=== PATIENT | female | born 1990 | race Caucasian/White ===

== ENCOUNTER 2020-12-11 17:27 | Emergency (ER) | payer SELFPAY ==
[2020-12-11 18:29] VITALS: BP 119/74; PULSE 90
--- NOTE | 2020-12-11 18:50 | EDM.PDOC ---
<JurgenMaxineYsabel Arambula - Last Filed: 12/11/20 18:36> ED HPI GENERAL MEDICAL PROBLEM - General Chief Complaint: Fever Stated Complaint: TEMP 98.1 , PT STATES SHE HAS CALL COVID S Time Seen by Provider: 12/11/20 18:30 Source of Information: Reports: Patient History Limitations: Reports: No Limitations - History of Present Illness INITIAL COMMENTS - FREE TEXT/NARRATIVE: Patient is a 30 yo female who presents to the ED with a 2 day history of sinus congestion, headache, and fever. She states her symptoms began with sinus congestion two days and she later developed a headache. That night the patient reported a fever of 103 degrees Fahrenheit. She took NyQuil which improved her symptoms. Yesterday her symptoms persisted and she also developed a scratchy throat, cough and developed a fever of 101 degrees Fahrenheit. Yesterday she took DayQuil and NyQuil and states she also had improvement of symptoms. She reports no fever today, but has some mild nausea with no events of emesis. Her appetite is decreased, but reports good fluid intake. She denies fatigue, chills, vomiting, body aches, sore throat, cough with production, SOB, chest pain, abdominal pain, or changes in bowel habits. Her boyfriend tested positive for Covid today, developed symptoms 5 days ago, so she is concerned she may also have Covid. Aside from this she offers no other acute concerns. Duration: Day(s): (2 days ) Location: Reports: Other (headache, sinus congestion, fever) Improves with: Reports: Medication Worsens with: Reports: None Associated Symptoms: Reports: Fever/Chills, Headaches, Loss of Appetite, Nausea/Vomiting Treatments ONSHORE DIVER: Reports: Other (see below) (NyQuil, DayQuil ) - Related Data Allergies Allergy/AdvReac Type Severity Reaction Status Date / Time No Known Allergies Allergy Verified 12/11/20 18:24 Home Meds: Home Meds . [No Known Home Meds] 12/11/20 [History] Past Medical History - Past Health History Medical/Surgical History: Denies Medical/Surgical History Other Dermatologic History: eczema Social & Family History - Tobacco Use Tobacco Use Status *Q: Current Every Day Tobacco User Years of Tobacco use: 13 Packs/Tins Daily: 0.7 ED ROS GENERAL - Review of Systems Review Of Systems: Comprehensive ROS is negative, except as noted in HPI. ED EXAM, GENERAL - Physical Exam Exam: See Below Exam Limited By: No Limitations General Appearance: Alert, WD/WN, No Apparent Distress Eye Exam: Bilateral Eye: EOMI, Normal Inspection, PERRL Ears: Normal External Exam, Normal Canal, Hearing Grossly Normal, Normal TMs Nose: Normal Inspection, Normal Mucosa, No Blood, Other (No sinus congestion ). No: Nasal Drainage Throat/Mouth: Normal Inspection, Normal Lips, Normal Teeth, Normal Gums, Normal Oropharynx, Normal Voice, No Airway Compromise Head: Atraumatic, Normocephalic Neck: Normal Inspection, Supple, Non-Tender, Full Range of Motion Respiratory/Chest: No Respiratory Distress, Lungs Clear, Normal Breath Sounds, No Accessory Muscle Use, Chest Non-Tender Cardiovascular: Normal Peripheral Pulses, Regular Rate, Rhythm, No Edema, No Gallop, No JVD, No Murmur, No Rub GI/Abdominal: Normal Bowel Sounds, Soft, Non-Tender, No Organomegaly, No Distention, No Abnormal Bruit, No Mass (Female) Exam: Deferred Rectal (Female) Exam: Deferred Extremities: Normal Inspection, Normal Range of Motion, Non-Tender, Normal Capillary Refill, No Pedal Edema Neurological: Alert, Oriented, CN II-XII Intact, Normal Cognition, Normal Gait, Normal Reflexes, No Motor/Sensory Deficits Psychiatric: Normal Affect, Normal Mood Skin Exam: Warm, Dry, Intact, Normal Color, No Rash Lymphatic: No Adenopathy Course - Re-Assessments/Exams Free Text/Narrative Re-Assessment/Exam: -Patient's fever is well controlled with medication and afebrile in the clinic. No cough with production, lungs are clear bilaterally, and no sinus tenderness, so no CBC warranted. -The patient has had no events of emesis, no diarrhea or lose stools, and adequate hydration so concerns for dehydration or need for CMP. -Patient has no chest pain, SOB, and is an otherwise healthy 30 yo female so D-dimer is not warranted. 12/11/20 18:55 Departure - Departure Time of Disposition: 19:21 Disposition: Home, Self-Care 01 Condition: Good Clinical Impression: COVID-19 - Discharge Information *PRESCRIPTION DRUG MONITORING PROGRAM REVIEWED*: No *COPY OF PRESCRIPTION DRUG MONITORING REPORT IN PATIENT DIANNE: No Instructions: COVID-19: What Your Test Results Mean - CDC, 10 Things You Can Do to Manage Your COVID-19 Symptoms at Home - CDC Forms: ED Department Discharge Care Plan Goals: Patient tests results for Covid-19 were Positive -Discussed symptomatic treatment Covid symptoms and included instructions in discharge. Manage fever and headache with ibuprofen or tylenol. May continue with NyQuil for sinus congestion and cough. Make sure to drink plenty of fluids. -Patient needs to quarantine and avoid contact for the next 10 days. -Seek medical care if symptoms persist or worsen. If patient develops chest pain or SOB, should follow up in the ED. Sepsis Event Note (ED) - Evaluation Sepsis Screening Result: No Definite Risk <Justen Moe - Last Filed: 12/11/20 19:34> Course - Vital Signs Last Recorded V/S: Last Vital Signs Temp 36.8 C 12/11/20 18:09 Pulse 90 12/11/20 18:09 Resp 16 12/11/20 18:09 BP 119/74 12/11/20 18:09 Pulse Ox 97 12/11/20 18:09 - Orders/Labs/Meds Labs: Laboratory Tests 12/11/20 Range/Units 18:15 Influenza Type A RNA Negative (NEGATIVE) Influenza Type B RNA Negative (NEGATIVE) SARS-CoV-2 RNA ([facility]) Positive H (NEGATIVE) - Re-Assessments/Exams Free Text/Narrative Re-Assessment/Exam: 12/11/20 19:33 I have examined the patient. I have discussed findings and treatment plan with the PA student. I agree with the assessment and plan in the following students note. Sepsis Event Note (ED) - Focused Exam Vital Signs: Vital Signs Temp Pulse Resp BP Pulse Ox 12/11/20 18:09 36.8 C 90 16 119/74 97
[2020-12-11 19:07] LABS: CORONAVIRUS COVID-19 NAA POSITIVE (NEGATIVE)
== END 2020-12-11 19:40 | disposition home or self-care (01) ==
LOC: DL.ED 17:27
DX: U07.1 COVID-19 (principal); Z72.0 Tobacco use
CPT/HCPCS: 0240U; 99284; 99283

== ENCOUNTER 2023-04-29 10:56 | Emergency (ER) | payer MEDICAID ==
[2023-04-29 11:09] VITALS: BP 132/91; PULSE 64
[2023-04-29] MEDS ORDERED: Sodium Chloride 0.9% 10 ML Syringe FLUSH PRN (11:28)
[2023-04-29 11:51] LABS: BASOPHILS PERCENT AUTO 0.4 % (0.0-1.0); EOSINOPHILS PERCENT AUTO 1.4 % (1.0-3.0); HEMATOCRIT 40.1 % (37.0-47.0); HEMOGLOBIN 13.7 g/dL (12.0-16.0); LYMPHOCYTES PERCENT AUTO 25.7 % (20.5-50.1); MEAN CORPUSCULAR HEMOGLOBIN 30.9 pg (27.0-34.0); MEAN CORPUSCULAR HGB CONC 34.2 g/dL (33.0-35.0); MEAN CORPUSCULAR VOLUME 90.5 fL (80-100); MONOCYTES PERCENT AUTO 5.9 % (2-8); NEUTROPHILS PERCENT AUTO 66.6 % (42.2-75.2); PLATELET COUNT,PLT 290 10^3/uL (150-450); RED BLOOD CELL COUNT 4.43 10^6/uL (4.2-5.4); WHITE BLOOD CELL COUNT,WBC 7.1 10^3/uL (5.0-10.0)
[2023-04-29] MEDS: Iopamidol 612 MG/ML 100 ML Bottle IVPUSH ONE (12:00)
[2023-04-29 12:12] LABS: LACTIC ACID 0.7 mmol/L (0.4-2.0)
[2023-04-29 12:19] LABS: A/G RATIO 0.9; ALBUMIN 3.7 g/dL (3.4-5.0); BILIRUBIN TOTAL 0.4 mg/dL (0.2-1.0); BUN/CREATININE RATIO 7.8 (No establ ref range); C-REACTIVE PROTEIN 0.7 mg/dL (0.0-0.9); CALCIUM 8.7 mg/dL (8.5-10.1); CREATININE 0.64 mg/dL (0.55-1.02); EST CRCL DRUG DOSING (CG) 129.66 mL/min; PROTEIN TOTAL,TP 7.9 g/dL (6.4-8.2)
== END 2023-04-29 12:49 | disposition home or self-care (01) ==
LOC: DL.ED 10:56
DX: R59.1 Generalized enlarged lymph nodes (principal); F17.210 Nicotine dependence, cigarettes, uncomplicated
CPT/HCPCS: 36415; 70491; 80053; 83605; 85025; 86140; 87040; 99284; Q9967